=== PATIENT | female | born 1995 | race Caucasian/White ===

== ENCOUNTER 2018-11-21 16:59 | Emergency (ER) | payer SELFPAY ==
[~2018-11-21] VITALS: Ht 152.4 cm; Wt 93.0 kg
[2018-11-21 17:11] VITALS: BP 123/70
[2018-11-21] MEDS ORDERED: PREDNISONE 20MG TABLET PO STA (17:29)
[2018-11-21] MEDS ORDERED: ALBUTEROL (0.083%) 2.5MG/3ML NEB HHN STA (17:29)
[2018-11-21] MEDS ORDERED: IPRATROPIUM BROMIDE (0.02%) 0.5MG/2.5ML NEB HHN STA (17:29)
[2018-11-21] MEDS ORDERED: IPRATROPIUM BROMIDE (0.02%) 0.5MG/2.5ML NEB ONE (17:57)
[2018-11-21] MEDS ORDERED: ALBUTEROL (0.083%) 2.5MG/3ML NEB ONE (17:57)
== END 2018-11-21 19:00 | disposition home or self-care (01) ==
LOC: ER 16:59
DX: J45.901 Unspecified asthma with (acute) exacerbation (principal); F17.210 Nicotine dependence, cigarettes, uncomplicated; Z90.49 Acquired absence of other specified parts of digestive tract
CPT/HCPCS: 87804; 94640; 99283; J7512; J7611

== ENCOUNTER 2018-12-10 21:55 | Emergency (ER) | payer SELFPAY ==
[~2018-12-10] VITALS: Ht 152.4 cm; Wt 91.0 kg
[2018-12-10 22:30] VITALS: BP 126/77
== END 2018-12-11 01:30 | disposition left against medical advice (07) ==
LOC: ER 21:55
DX: Z53.21 Procedure and treatment not carried out due to patient leaving prior to being seen by health care provider (principal)
CPT/HCPCS: 81025

== ENCOUNTER 2019-01-10 01:04 | Emergency (ER) | payer SELFPAY ==
[~2019-01-10] VITALS: Ht 162.6 cm; Wt 90.1 kg
[2019-01-10 03:15] VITALS: BP 119/84
[2019-01-11] MEDS ORDERED: TRAZ-212 PO (13:33)
== END 2019-01-10 03:16 | disposition home or self-care (01) ==
LOC: ER 01:04
DX: H66.93 Otitis media, unspecified, bilateral (principal); J06.9 Acute upper respiratory infection, unspecified; J45.909 Unspecified asthma, uncomplicated; F17.200 Nicotine dependence, unspecified, uncomplicated; Z90.89 Acquired absence of other organs; Z90.49 Acquired absence of other specified parts of digestive tract
CPT/HCPCS: 99283

== ENCOUNTER 2019-01-11 13:22 | Emergency (ER) | payer MEDICAID ==
[~2019-01-11] VITALS: Ht 154.9 cm; Wt 91.0 kg
[2019-01-11] MEDS ORDERED: TRAZ-212 PO (13:33)
[2019-01-11] MEDS ORDERED: SODIUM CHLORIDE 0.9% 1,000 ML IV ONE (13:41)
[2019-01-11] MEDS ORDERED: ACTIVATED CHARCOAL 50 G/240 ML TUBE PO ONE (13:45)
[2019-01-11 14:14] LABS: BASOPHILS % 0.3 % (0.0-2.0); EOSINOPHILS % 5.8 % (0.0-5.0); HEMATOCRIT. 40.2 % (36.0-48.0); HEMOGLOBIN. 13.6 g/dL (12.0-16.0); LYMPHOCYTES % 26.4 % (20.0-50.0); MEAN CORPUSCULAR HEMOGLOBIN 29.2 pg (28.0-32.0); MEAN CORPUSCULAR VOLUME 86.3 fL (81.0-99.0); MEAN PLATELET VOLUME 9.4 fl (7.4-10.4); MONOCYTES % 3.8 % (2.0-8.0); NEUTROPHILS % 63.7 % (40.0-76.0); PLATELET 248 x1000/uL (130-400); RED BLOOD CELL COUNT 4.65 mill/uL (4.2-5.4); RED CELL DISTRIBUTION WIDTH 13.7 % (11.6-14.6)
[2019-01-11 14:23] LABS: CHLORIDE 109 mEq/L (98-107)
[2019-01-11 14:28] LABS: ETHANOL BLOOD < 10 mg/dL; HCG SCREEN NEGATIVE
[2019-01-11 16:31] VITALS: BP 111/67
== END 2019-01-11 17:27 | disposition left against medical advice (07) ==
LOC: ER 13:22
DX: T43.212A Poisoning by selective serotonin and norepinephrine reuptake inhibitors, intentional self-harm, initial encounter (principal); F32.9 Major depressive disorder, single episode, unspecified; J45.909 Unspecified asthma, uncomplicated; Z90.49 Acquired absence of other specified parts of digestive tract; Y92.018 Other place in single-family (private) house as the place of occurrence of the external cause
CPT/HCPCS: 36415; 80053; 80307; 80320; 80329; 83605; 84703; 85025; 85610; 93005; 99284; J7030; G0480